=== PATIENT | female | born 1985 | race Caucasian/White ===

== ENCOUNTER → 2020-07-11 16:02 | Outpatient (CLI) | payer BC, SELFPAY ==
--- NOTE | ~2020-07-11 | US_ITS ---
EXAMINATION: US OB transvaginal DATE: 07/11/2020 16:23 INDICATION: Uncertain dates. TECHNIQUE: Real-time transvaginal pelvic ultrasound was performed. COMPARISON: None. FINDINGS: The uterus measures 7.8 x 4.7 x 6.1 cm. There is an intrauterine gestational sac with mean diameter o f 8 mm. A yolk sac is identified. No pole is visible. The right ovary measures 3.5 x 3.1 x 3.6 cm. The left ovary is not visualized. There is no free fluid in the pelvis. IMPRESSION: 1. Single intrauterine gestation. Reviewed, dictated and finalized at location A.
== END ==
PROVIDERS: Visit Provider Obstetrics & Gynecology Gynecology
DX: O26.21 Pregnancy care for patient with recurrent pregnancy loss, first trimester (principal); Z3A.00 Weeks of gestation of pregnancy not specified
CPT/HCPCS: 76817

== ENCOUNTER → 2020-07-28 11:01 | Outpatient (CLI) | payer BC, SELFPAY ==
--- NOTE | ~2020-07-28 | US_ITS ---
EXAMINATION: US OB <= 14 weeks fetus DATE: 07/28/2020 11:21 INDICATION: Uncertain gestational date TECHNIQUE: Real-time transabdominal and transvaginal obstetric ultrasound. FINDINGS: Ultrasound dated 07/11/2020 The uterus measures 12.6 x 5.7 x 6.8 cm. There is an intrauterine gestational sac, with pole id entified. The crown rump length measures 1.79 cm, which correlates with a estimated gestational age of 8 weeks 2 days. heart tones are identified measuring 154. The ovaries are within normal li mits. No significant ovarian or adnexal mass. No free fluid. IMPRESSION: 1. SL IUP with an EGA of 8 weeks, 2 days (EDC by current ultrasound of 03/07/2021). Reviewed, dictated and finalized at location A. IMPRESSION: 1. SL IUP with an EGA of 8 weeks, 2 days (EDC by current ultrasound of 03/07/19).
== END ==
PROVIDERS: Visit Provider Obstetrics & Gynecology Gynecology
DX: Z36.87 Encounter for antenatal screening for uncertain dates (principal); Z3A.08 8 weeks gestation of pregnancy
CPT/HCPCS: 76801

== ENCOUNTER 2020-10-29 09:10 | Observation (INO) | payer BC, SELFPAY ==
--- NOTE | 2020-10-29 09:10 | OBADM ---
This patient, Darlyn Ghosh, admitted to the OB room OB Post 115 for observation. Patient/family oriented to hospital policies and general routines including ID bracelet, bed and alarms, visiting hours, pain management, procedures, bathroom and other care routines, personal items, smoking policy, room service/diet, and visiting hours. Patient/Family are encouraged to report perceived risks to care and to ask questions if they do not understand what they are told or what they should do.
[2020-10-29 09:20] VITALS: BMI 33.3
[2020-10-29 09:44] VITALS: BP 111/66; PULSE 83
--- NOTE | 2020-10-31 13:04 | PM.OBTRLD ---
OB - Triage/Final Diagnosis Visit Information Reason for evaluation: other (s/p seizure; IUP 21 weeks) Comments/Additional reasons for admission: I have assessed the risk for this patient, Darlyn Ghosh, and determined that she would benefit from observation care.
== END 2020-10-29 10:20 | disposition home or self-care (01) ==
PROVIDERS: Admitting Provider Obstetrics & Gynecology Gynecology; Visit Provider Obstetrics & Gynecology Gynecology
DX: O26.892 Other specified pregnancy related conditions, second trimester (principal); R56.9 Unspecified convulsions; Z3A.21 21 weeks gestation of pregnancy
CPT/HCPCS: G0378; G0379

== ENCOUNTER 2020-12-15 07:04 | Outpatient (RCR) | payer BC, SELFPAY ==
[2020-12-15 08:40] LABS: Hematocrit 33.1 % (37.0-47.0)
[2020-12-15 08:53] LABS: Glucose 1 Hour PP 50gm Dose 159 mg/dL
[2020-12-15 09:36] LABS: HIV 1/2 Ab P24 Ag Result Negative (Negative); Vitamin D 25 Hydroxy 79.7 ng/mL
[2020-12-17] MEDS: RHO(D) IMMUNE GLOBULIN 300 MCG/2 ML SYRINGE IM (18:08)
== END 2021-03-15 23:59 | disposition home or self-care (01) ==
LOC: ANHLAB 07:04
PROVIDERS: PCP Internal Medicine; Visit Provider Obstetrics & Gynecology Gynecology
DX: Z11.4 Encounter for screening for human immunodeficiency virus [HIV] (principal); Z29.13 Encounter for prophylactic Rho(D) immune globulin; O36.0130 Maternal care for anti-D [Rh] antibodies, third trimester, not applicable or unspecified; Z3A.00 Weeks of gestation of pregnancy not specified
CPT/HCPCS: 36415; 82306; 82947; 85014; 85018; 85461; 86703; 90384; 96372; G0432; J2790

== ENCOUNTER 2020-12-23 07:10 | Outpatient (CLI) | payer BC, SELFPAY ==
[2020-12-23 07:52] LABS: Glucose Fasting Gestational 91 mg/dL (>/=95)
[2020-12-23 09:36] LABS: Glucose 1 Hour Gest 175 mg/dL (>/=180)
[2020-12-23 10:38] LABS: Glucose 2 Hour Gest 149 mg/dL (>/= 155)
[2020-12-23 11:35] LABS: Glucose 3 Hour Gest 80 mg/dL (>/=140)
== END 2020-12-23 07:11 | disposition home or self-care (01) ==
LOC: ANHLAB 07:13
PROVIDERS: PCP Internal Medicine; Visit Provider Obstetrics & Gynecology Gynecology
DX: O99.810 Abnormal glucose complicating pregnancy (principal); Z3A.29 29 weeks gestation of pregnancy
CPT/HCPCS: 36415; 82951; 82952

== ENCOUNTER 2021-03-01 11:09 | Outpatient (CLI) | payer BC, SELFPAY ==
[2021-03-01 11:29] LABS: Hematocrit 36.3 % (37.0-47.0); Hemoglobin 12.3 g/dL (12.0-15.0); Mean Corpuscular HGB Conc 33.9 g/dl (32-36); Mean Corpuscular Hemoglobin 30.1 pg (26-34); Mean Platelet Volume 8.9 fl (7.4-10.4); Platelet Count Result 278 k/mm3 (150-375); Red Blood Count 4.08 M/mm3 (4.2-5.4); Red Cell Distribution Width 14.9 % (11.5-14.5); White Blood Count 9.9 K/mm3 (4.5-10.0)
[2021-03-02 11:22] LABS: Rapid Plasma Reagin Non-Reactive (NonReactive)
== END 2021-03-01 11:10 | disposition home or self-care (01) ==
LOC: ANHOBOP 11:11
PROVIDERS: PCP Internal Medicine; Visit Provider Obstetrics & Gynecology Gynecology
DX: Z01.818 Encounter for other preprocedural examination (principal)
CPT/HCPCS: 36415; 85027; 86592; 86850; 86900; 86901

== ENCOUNTER 2021-03-02 05:33 | Inpatient (IN) | payer BC, SELFPAY ==
[2021-03-02] VITALS (53 sets, daily range): BP systolic 95–130; BP diastolic 51–76; PULSE 55–103; RESP 12–20; TEMP 36.2–37.2; O2SAT 93–100; BMI 35.4
--- NOTE | 2021-03-02 05:57 | LDADM ---
This patient, Darlyn Ghosh, was admitted to Labor/Delivery/Recovery 120 on 03/02/21 at 05:33. Plans for repeat section, pain management and were discussed with patient. Patient/family oriented to hospital policies and general routines including ID bracelet, bed and alarms, visiting hours, pain management, procedures, bathroom and other care routines, personal items, smoking policy, room service/diet and guest tray routines, infant security routines, and visiting hours. Patient/Family are encouraged to report perceived risks to care and to ask questions if they do not understand what they are told or what they should do. See OBIX for further documentation.
[2021-03-02] MEDS: LACTATED RINGERS 1,000 ML 125 ML IV CONT ×2 (06:00→06:43)
--- NOTE | 2021-03-02 06:51 | WPDANESEPPF ---
Anes - Initial Pre Proc Eval Procedure: Operation Date: 03/02/21 07:30 Proposed Procedures p Repeat Section With Bilateral Tubal Ligation - Cierra Copeland MD Date/Time: 03/02/21 06:51 Surgeon: Cierra Copeland MD Pre Op Diagnosis: Repeat ,Vol Sterilization Patient Data Age: 35 Gender: F Height: 1.65 m Weight: 96.5 kg Last Vital Signs Pulse 95 03/02/21 06:45 BP 119/68 03/02/21 06:45 Allergies Allergy/AdvReac Type Severity Reaction Status Date / Time Penicillins Allergy Unknown Itching Verified 12/16/17 14:29 Home Medications Medication Instructions Recorded Confirmed Type PNV cmb#95-ferrous fumarate-FA 1 tablet PO DAILY 02/16/21 02/16/21 History [] cholecalciferol (vitamin D3) 75 mcg PO DAILY 02/16/21 02/16/21 History [Vitamin D3] ferrous sulfate [Iron (ferrous 325 mg PO DAILY 02/16/21 02/16/21 History sulfate)] levetiracetam [Keppra] 750 mg PO BID 02/16/21 02/16/21 History metformin 500 mg PO BID 02/16/21 02/16/21 History Patient hx anesthesia problems: none Family hx anesthesia problems: none Results Review: All pre-operative results and documents have been reviewed as part of the pre-operative evaluation. [facility] Past Medical History Medical History (Updated 03/02/21 @ 06:52 by Griffin Javed MD) Obesity Seizures Surgical History Surgical History (Updated 03/02/21 @ 06:52 by Griffin Javed MD) History of section Family History Family History (Updated 02/16/21 @ 15:39 by Stephie Lee RN) Mother Diabetes mellitus ASD, spontaneous closure Father Pancreatic cancer Social History Social History Smoking status: Never smoker Second hand tobacco smoke exposure: No Substance use: never Spiritual care concerns: No Anes - Eval Final PreProcedure Day of Procedure 03/02/21 06:51 Patient weight: obese Heart: regular rate and rhythm Lungs: clear to auscultation Airway: Mallampati scale class II Neurological: alert and oriented Last oral intake: >/= 8 hours ASA classification: III Emergent: no Anesthetic plan: proceed Anesthesia type and monitoring: regional spinal and standard monitoring Results Review: All pre-operative results and documents have been reviewed as part of the pre-operative evaluation. Informed Consent: The patient's anesthetic plan and its attendant risks and benefits were discussed with the patient/family/POA. Questions were solicited and answers provided to the satisfaction of the patient/family/POA.
--- NOTE | 2021-03-02 07:03 | P.HP_ITS ---
H&P: HPI History of Present Illness Date/Time: 03/02/21 07:03 Chief Complaint: repeat csection and BTL Narrative: 35 yo A1 here at 39 wks for repeat LTCS and BTL. Patient has completed her childbearing and requests permanent sterilization. Risks of failure with ectopic if tubal fails discussed. Patient is aware this is a permanent and irreverisible procedure rendering her sterile. conceived with Femara. uncomplicated. labs: B-; RPR-; HIV -HbSAg -; Rubella Immune; GBS+. [facility] Past Medical History Medical History (Updated 03/02/21 @ 07:08 by Cierra Copeland MD) Obesity PCOS (polycystic ovarian syndrome) Seizures Surgical History Surgical History (Updated 03/02/21 @ 07:09 by Cierra Copeland MD) History of section Family History Family History (Updated 02/16/21 @ 15:39 by Stephie Lee RN) Mother Diabetes mellitus ASD, spontaneous closure Father Pancreatic cancer Social History Social History Smoking status: Never smoker Second hand tobacco smoke exposure: No Substance use: never Spiritual care concerns: No Meds Home Medications and Allergies Home Medications Medication Instructions Recorded Confirmed Type PNV cmb#95-ferrous fumarate-FA 1 tablet PO DAILY 02/16/21 02/16/21 History [] cholecalciferol (vitamin D3) 75 mcg PO DAILY 02/16/21 02/16/21 History [Vitamin D3] ferrous sulfate [Iron (ferrous 325 mg PO DAILY 02/16/21 02/16/21 History sulfate)] levetiracetam [Keppra] 750 mg PO BID 02/16/21 02/16/21 History metformin 500 mg PO BID 02/16/21 02/16/21 History Allergies Allergy/AdvReac Type Severity Reaction Status Date / Time Penicillins Allergy Unknown Itching Verified 12/16/17 14:29 Vital Signs Vital Signs - 24 hr 03/02/21 06:15 03/02/21 06:30 03/02/21 06:41 Temperature 99 F Pulse Rate 87 86 91 Blood Pressure 125/73 116/76 121/75 03/02/21 06:45 03/02/21 07:00 Temperature Pulse Rate 95 92 Blood Pressure 119/68 116/71 Exam Const: General: healthy appearing and alert Orientation/consciousness: patient oriented x3 GI: Inspection: other (fundal height 38 cm) GI Palp: Yes Soft to palpation and No Tenderness to palpation present (GI) : External Female Exam: normal external appearance Neuro: General: patient oriented x3 Assessment and Plan Assessment and plan (1) 39 weeks gestation of : Code(s): Z3A.39 - 39 weeks gestation of Status: Acute (2) History of section: Code(s): Z98.891 - History of uterine scar from previous surgery Status: Acute Assessment and Plan: plan to proceed with repeat csection (3) Encounter for sterilization: Code(s): Z30.2 - Encounter for sterilization Status: Acute Assessment and Plan: plan to proceed with tubal ligation
--- NOTE | 2021-03-02 07:03 | WPDHPUPDATE1 ---
History and Physical Update Update Date/Time: 03/02/21 07:03 History and Physical has been reviewed, including an updated exam of the patient. There are NO changes in the patient's condition. Risks, benefits, and alternatives have been discussed and questions answered. Patient agrees to proceed with procedure.
[2021-03-02] MEDS: ceFAZolin 2 GM/D5W 50 ML 2 GM/50 ML BAG IVPB (07:24)
--- NOTE | 2021-03-02 08:22 | P.OP_ITS ---
Procedure Note - Detailed Date of Procedure 03/02/21 Pre-op Diagnosis Repeat ,Vol Sterilization Post-op Diagnosis same Procedure Performed Repeat low-transverse section with bilateral tubal ligation Surgeon Cierra Copeland MD Anesthesia spinal Findings Normal-appearing tubes, ovaries, and uterus. Female 7lb 1oz with 8 and 9 Apgars. Description of Procedure The patient was taken to the operating room and placed under anesthesia in the dorsal supine position with a leftward tilt. Once anesthesia was deemed adequate, she was prepped and draped in the usual sterile fashion. Pfannenstiel skin incision was made with a scalpel and carried down to the midline where the fascia was nicked. The fascial incision was extended laterally using Leo scissors. Bleeding vessels in the subcutaneous tissue are cauterized. The [facility] used to tent the fascia which was then dissected off using sharp and blunt dissection. The peritoneum is entered with a Peon and extended with blunt traction. The bladder blade is placed and the vesicouterine peritoneum grasped with a Peon. The bladder flap was created using Metzenbaum laterally and blunt dissection. Bladder blade is replaced. The lower uterine segment was incised in a transverse fashion with the scalpel. Membranes are ruptured with clear fluid noted. The incision is extended laterally using blunt traction. The infant's head was brought up into the incision and delivered while the medical assistant instructor applied fundal pressure. The infant was fully delivered and the cord clamped and cut. The was handed to the waiting nursery nurse. The placenta is removed using manual traction after cord blood is taken. The uterus is exteriorized, cleared of all clots and debris, and closed using 0 Monocryl in a running locked fashion. The same suture was used to imbricate. One additional [id number] suture was required in the left corner. Good hemostasis is noted. The right tube was grasped with a Eloina and the distal 2/3 crossclamped with a Z clamp. The tube was excised and the pedicle tied using Orlando stitch of 0 Vicryl. The identical procedure was performed on the left side. Bovie cautery was placed on the peritoneum near the to that was having some minimal bleeding. Both tubes and the uterus are noted to be hemostatic. The cul-de-sac is irrigated. The uterus was returned to the abdomen. The tubes and uterus were again inspected and noted to be hemostatic. The fascia was closed using 0 Vicryl in a running fashion. Subcutaneous tissues were irrigated and made hemostatic using Bovie cautery. Skin incision was closed using 4-0 Vicryl in a subcuticular fashion. Dermaflex was placed over the incision. Sponge, needle, and instrument counts are correct per the OR staff. Ancef was given prior to skin incision. Estimated Blood Loss 500 Drains Yes (Harris catheter) Packing No Pathology yes (Bilateral tubes) Complications No immediate complications Condition stable Disposition floor
--- NOTE | 2021-03-02 08:28 | PM.OBDSVD ---
DS: Admitting Diagnosis Discharge Date 03/04/21 Admitting Diagnosis Intrauterine at 39 weeks for repeat section and tubal ligation DS: Discharge Diagnosis Discharge Diagnosis (1) History of section: Code(s): Z98.891 - History of uterine scar from previous surgery Status: Acute (2) Encounter for sterilization: Code(s): Z30.2 - Encounter for sterilization Status: Acute (3) 39 weeks gestation of : Code(s): Z3A.39 - 39 weeks gestation of Status: Acute (4) delivery delivered: Code(s): O82 - Encounter for delivery without indication Status: Acute OB - DS: Summary OB Procedures : Ultrasound OB Procedures Intrapartum: low cervical, transverse and Tubal ligation OB Procedures: : None Peripartum Data Procedures: Procedures Operation Date: 03/02/21 07:30 <No data on this case meets the specified criteria> complications: none Status at Discharge Functional status at discharge: independent ambulation Overall status at discharge: patient is progressing back to baseline Time Spent with Patient Time attestation: Total time spent providing and/or coordinating discharge services: DS: Data Data Completed and Pending Pending studies at discharge: Pending at discharge 03/02/21 08:16 Surgical [PTH] Routine Discharge Plan Discharge Attending physician on discharge: Cierra Copeland Discharging Clinician: Justin Duran Anticipated Discharge Date/Time: 03/04/21 08:29 Patient Disposition: Home, Self-Care Activity: may shower, may drive after 2 weeks and pelvic rest Diet: regular Discharge Instructions: Education: Mom and Baby Guide Given to: Mother Follow-Up: Call your delivering provider's office for an appointment to be seen in: 1 Week Mom and baby should come to the [facility] for the follow-up appointment. Appointment Date/Time: March 06, 2021 at 9:00 am What to expect at your follow-up visit: Blood Pressure Check Call [phone] if you are unable to keep your appointment time. BREAST CARE: * Wear a snug supportive bra. * For engorgement discomfort: Bottle Feeding: * May apply ice packs ABDOMINAL INCISION: (if applicable) * Allow incision to air dry * Do NOT use lotions for powders on your incision * When showering, allow soap and water to run over the incision, but do not wash incision PERINEAL CARE: * Until bleeding stops, use your senia bottle after urinating * Change your pad frequently throughout the day * No tub baths until seen by your physician - You may shower ACTIVITY: * Rest as much as possible. * Do not exercise or lift anything heavier than your baby (such as laundry or other children.) * Avoid stairs or driving as much as possible. * Do not put anything into the vagina. No douching, tampons, or sexual activity until seen by physician. NOTIFY PHYSICIAN IF YOU HAVE ANY QUESTIONS OR IF ANY OF THE FOLLOWING SYMPTOMS OCCUR: * If your incision becomes red, swollen, or more painful than what you have experienced in the hospital. * If your vaginal bleeding becomes foul smelling. * If your vaginal bleeding becomes more heavy than a period or if your bleeding changes from pink to bright red. However, you may pass an occasional walnut-sized clot once or twice for the first week . * If you experience a sharp, shooting pain in you calves. * If you discover a hard, reddened area on your breast or if you experience flu-like symptoms. * If you have a fever of 100.4 or greater DIET: * Eat regular, well-balanced meals. * Drink plenty of fluids daily. If , drink to thirst. Patient Instructions: Antibiotic Form Stand Alone Forms: General Discharge Information Follow-up/Referrals: Cierra Copeland MD [Physician] - 1 Week (and 6 wk)
[2021-03-02] MEDS: OXYTOCIN 30 UNITS/NS 500 ML 30 UNITS/500 ML BAG 125 UNITS IV CONT (09:18)
[2021-03-02] MEDS: diphenhydrAMINE HCl INJ 50 MG/ML VIAL 25 MG IV PUSH (09:46)
--- NOTE | 2021-03-02 10:38 | PC.NURSE ---
Patient transferred to post room #282 via stretcher. Support person present. Oriented to unit, room, information board, rooming in, admission packet and security measures. Patient verbalizes understanding.
--- NOTE | 2021-03-02 12:10 | PC.NURSE ---
Mother called out for assist with feeding. Mother reports infant latched for first feeding after several attempts and was able to maintain latch without difficulties or discomfort. Mother reported attempting with first child that did not latch, she pumped for several months. Infant is able to freely thrust tongue past gum ridge and flange both lips. Reviewed feeding cues, frequencies, duration of feedings, feeding elimination flow sheet, and signs of adequate intake. Demonstrated stimulation techniques to wake for feeding. Assisted with infant to breast. Reviewed positioning/alignment in football, holding breast in ?C? hold and guided asymmetrical latch on. Reviewed rational for each. able to latch correctly within a few attempts. Infant nursed eagerly with steady draws and occasional swallowing noted, some pausing noted. Reviewed signs of a correct latch, effective nursing and suck swallow ratio. Suggested mother stimulate while feeding to increase stimulation for milk supply, for increased intake and to assist with maintaining deep latch. would slip to shallow latch causing tenderness and frequently releasing latch. Demonstrated how to adjust latch more deeply while feeding as needed. Mother reports she can feel the difference in latch with no tenderness. Nipple care reviewed of lanolin after feedings, warm compresses as needed. Instructed mother to call out for RN assistance if she is unable to latch for feeding or she has discomfort with nursing. Instructed feeding should be initiated three hours from start of last feeding or if feeding cues are noted before. Mother voiced understanding of information shared.
[2021-03-02] MEDS: DOCUSATE SODIUM 100 MG CAPSULE PO (13:19)
[2021-03-02] MEDS: LORATADINE 10 MG TABLET PO (13:19)
[2021-03-02] MEDS: DEXTROSE 5%/0.45% SOD CHL 1,000 ML 125 ML IV CONT (13:21)
--- NOTE | 2021-03-02 15:10 | PC.NURSE ---
Mother called out for observation of latch. Reviewed positioning/alignment in cross cradle, holding breast in ?U? hold and guided asymmetrical latch on. Reviewed rational for each. Mother independently was able to latch infant within a few attempts. nursed eagerly with steady draws and occasional swallowing noted, some pausing noted. Reviewed signs of a correct latch, effective nursing and suck swallow ratio. Suggested mother stimulate while feeding to increase stimulation for milk supply, for increased intake and to assist with maintaining deep latch. was able to maintain latch without discomfort to mother. Infant would slip to shallow latch causing tenderness. Constant stimulation needed to keep awake and nursing. Nipple care reviewed of lanolin after feedings, warm compresses as needed. Instructed mother to call out for RN assistance if she is unable to latch for feeding or she has discomfort with nursing. Instructed feeding should be initiated three hours from start of last feeding or if feeding cues are noted before. Mother voiced understanding of information shared.
[2021-03-02] MEDS: KETOROLAC 30 MG/ML VIAL (*BKC) IV PUSH (15:14)
[2021-03-02] MEDS: levETIRAcetam Tablet 250 MG, levETIRAcetam Tablet 500 MG 750 MG PO (18:53)
[2021-03-02] MEDS: metFORMIN HCL XR 500 MG TAB.SR.24H PO (18:53)
[2021-03-02] MEDS: HYDROcodone/acetaminophen (*CRX) 5-325 MG TABLET 1 TAB PO (22:15)
[2021-03-03 03:47] VITALS: BP 97/60; PULSE 84; RESP 16; TEMP 36.6; O2SAT 98
[2021-03-03 05:19] LABS: Basophils Absolute Auto 0.1 K/mm3 (0.0-0.1); Basophils Percent Auto 0.5 % (0.2-1.2); Eosinophils Absolute Auto 0.1 K/mm3 (0-0.3); Eosinophils Percent Auto 1.2 % (0-4.4); Hematocrit 29.5 % (37.0-47.0); Hemoglobin 9.7 g/dL (12.0-15.0); Immature Granulocyte Absolute 0.05 K/mm3 (0.00-0.031); Immature Granulocyte Percent A 0.5 % (0-0.5); Lymphocytes Absolute Auto 1.66 K/mm3 (0.9-3.2); Mean Corpuscular HGB Conc 32.9 g/dl (32-36); Mean Corpuscular Hemoglobin 29.3 pg (26-34); Mean Corpuscular Volume 89.1 fl (80-100); Mean Platelet Volume 9.5 fl (7.4-10.4); Monocytes Absolute Auto 0.6 K/mm3 (0.1-0.6); Monocytes Percent Auto 6.1 % (2.6-8.5); Neutrophils Absolute Auto 7.9 K/mm3 (1.3-6.7); Neutrophils Percent Auto 75.7 % (45.5-73.1); Platelet Count Result 261 k/mm3 (150-375); Red Blood Count 3.31 M/mm3 (4.2-5.4); Red Cell Distribution Width 14.8 % (11.5-14.5); White Blood Count 10.4 K/mm3 (4.5-10.0)
--- NOTE | 2021-03-03 07:29 | P.PNOB_ITS ---
OB - PN: Subj Subjective Date/time seen: 03/03/21 07:29 Patient comments: no complaints and pain well controlled baby status: doing well OB - PN: Obj Data Labs CBC & Chem 7: 03/03/21 03:49 Labs: Laboratory Results - last 24 hr 03/03/21 03/03/21 03:49 03:49 WBC 10.4 H RBC 3.31 L Hgb 9.7 L Hct 29.5 L MCV 89.1 MCH 29.3 MCHC 32.9 RDW 14.8 H Plt Count 261 MPV 9.5 Immature Gran % (Auto) 0.5 Neut % (Auto) 75.7 H Lymph % (Auto) 16.0 L [place] % (Auto) 6.1 Eos % (Auto) 1.2 Baso % (Auto) 0.5 Lymph # (Auto) 1.66 [place] # (Auto) 0.6 Eos # (Auto) 0.1 Baso # (Auto) 0.1 Abs Immat Gran (auto) 0.05 H Absolute Neuts (auto) 7.9 H Absolute Nucleated RBC 0.0 Nucleated RBC % 0.0 Blood Type B Negative Antibody Screen Negative OB - PN A/P Plan day: 1 Plan: routine care Time Spent With Patient Time: Total time spent is greater than 50% in coordination of care (as documented) at patient's floor/unit and/or counseling patient: Exam Narrative: inc c/d/i : Bimanual exam- vagina & uterus: other (Uterus firm, nt @U)
[2021-03-03 07:55] VITALS: BP 103/68; PULSE 84; RESP 18; TEMP 36.8; O2SAT 98
[2021-03-03] MEDS: HYDROcodone/acetaminophen (*CRX) 5-325 MG TABLET 1 TAB PO ×4 (08:18→23:58)
[2021-03-03] MEDS: POLYSACCHARIDE IRON COMPLEX 150 MG CAPSULE PO ×2 (08:19→15:35)
[2021-03-03] MEDS: IBUPROFEN 600 MG TABLET PO ×3 (08:19→23:58)
[2021-03-03] MEDS: MULTIVIT/MIN/PREN/FOL AC/IRON TABLET 1 TAB PO (08:19)
[2021-03-03] MEDS: DOCUSATE SODIUM 100 MG CAPSULE PO ×2 (08:19→15:35)
[2021-03-03] MEDS: levETIRAcetam Tablet 250 MG, levETIRAcetam Tablet 500 MG 750 MG PO ×2 (08:20→19:52)
[2021-03-03] MEDS: metFORMIN HCL XR 500 MG TAB.SR.24H PO ×2 (08:20→19:52)
--- NOTE | 2021-03-03 08:30 | PC.NURSE ---
Mother reports she wishes to bottle feed.
[2021-03-03] MEDS: RHO(D) IMMUNE GLOBULIN 300 MCG/2 ML SYRINGE IM (10:24)
--- NOTE | 2021-03-03 12:46 | WPDANLDPN2 ---
Anes-Prog Note L&D Date/Time: 03/03/21 12:46 Comfortable throughout: section Neuraxial method: spinal Epidural/Spinal procedure site: clean & non-tender Neuro status: Neuro function grossly intact. Cardiovascular status: normal Respiratory status: normal Airway patency: baseline Mental status: baseline Post-Op hydration status: normal Vital Signs: Last Vital Signs Temp 98.2 F 03/03/21 07:55 Pulse 84 03/03/21 07:55 Resp 18 03/03/21 07:55 BP 103/68 03/03/21 07:55 Pulse Ox 98 03/03/21 07:55 Pain score (VAS): 2 I/O: Intake & Output 03/02/21 03/03/21 03/03/21 23:59 07:59 15:59 Intake Total 400 Output Total 3550 2450 Balance -3150 -2450 Post-procedural complaints: pruritis severe, treatment refractory Patient feedback: Patient satisfied with anesthetic care.
--- NOTE | 2021-03-03 12:47 | WPDANLDNPN2 ---
Anes-Prog Note L&D-Neuraxial Date/Time: 03/03/21 12:47 Neuraxial medications: intrathecal PF morphine Opiod-related complaints: pruritis severe, treatment refractory Patient feedback: Patient satisfied with post-operative pain management.
--- NOTE | 2021-03-03 16:58 | PC.NURSE ---
Patient viewed the discharge video Mother & Baby Care, The First Two Weeks . Patient was given the opportunity and encouraged to ask questions. Patient verbalized understanding of information shared and has been given the mother/baby guide for home reference.
[2021-03-03 19:45] VITALS: BP 112/61; PULSE 85; RESP 16; TEMP 37; O2SAT 98
[2021-03-04] MEDS: HYDROcodone/acetaminophen (*CRX) 5-325 MG TABLET 1 TAB PO ×3 (05:16→14:20)
--- NOTE | 2021-03-04 07:00 | PC.NURSE ---
PT introductions made and plan of care discussed per post op c section, pain management, bottle feeding, daily care activities. PT and fob both received such instructions through out the shift via one to one discussion, mom baby care guide and demonstration. PT and fob show no barriers to learning at this time and verbalized understanding of such care.
[2021-03-04 07:50] VITALS: BP 108/71; PULSE 88; RESP 18; TEMP 36.8; O2SAT 98
[2021-03-04] MEDS: POLYSACCHARIDE IRON COMPLEX 150 MG CAPSULE PO (09:41)
[2021-03-04] MEDS: DOCUSATE SODIUM 100 MG CAPSULE PO (09:41)
[2021-03-04] MEDS: SIMETHICONE 80 MG TAB.CHEW PO (09:41)
[2021-03-04] MEDS: IBUPROFEN 600 MG TABLET PO (09:43)
[2021-03-04] MEDS: levETIRAcetam Tablet 250 MG, levETIRAcetam Tablet 500 MG 750 MG PO (09:44)
[2021-03-04 09:45] VITALS: PULSE 88; RESP 18; O2SAT 98
[2021-03-04] MEDS: metFORMIN HCL XR 500 MG TAB.SR.24H PO (09:45)
--- NOTE | 2021-03-04 12:28 | PM.OBPNVD ---
OB - PN: Subj Subjective Date/time seen: 03/04/21 12:28 doing well desires home today OB - PN: Obj Data Labs CBC & Chem 7: 03/03/21 03:49 OB - PN A/P Assessment and Plan (1) delivery delivered: Code(s): O82 - Encounter for delivery without indication Status: Acute Assessment and Plan: continue with postop care. (2) Post-op pain: Code(s): G89.18 - Other acute postprocedural pain Status: Acute Time Spent With Patient Time: Total time spent is greater than 50% in coordination of care (as documented) at patient's floor/unit and/or counseling patient: Exam Narrative: c/d/i ff below umbilicus
--- NOTE | 2021-03-04 14:00 | PC.NURSE ---
Patient viewed the discharge video Mother & Baby Care, The First Two Weeks . Patient was given the opportunity and encouraged to ask questions. Patient verbalized understanding of information shared and has been given the mother/baby guide for home reference. PT received discharge instructions per protocol and verbalized understanding of such care.
--- NOTE | 2021-03-04 14:53 | PC.NURSE ---
Addendum entered by Tristin Spencer RN 03/04/21 14:54: actual time of discharge 1428 Original Note: PT discharged to home ambulatory accompanied by spouse and infant and taken to waiting car. Follow up appts confirmed
[2021-03-06 08:55] VITALS: BP 121/73; PULSE 79; RESP 16; TEMP 36.6; O2SAT 99
== END 2021-03-04 14:28 | disposition home or self-care (01) | DRG 785 ==
LOC: ANHLDR 08:30 → ANHOB2 03-03 11:11 → ANHLDR 03-05 09:52 → ANHOB2 03-05 09:52
PROVIDERS: Admitting Provider Obstetrics & Gynecology Gynecology; PCP Internal Medicine; Visit Provider Obstetrics & Gynecology
PROC: 10D00Z1 Extraction of Products of Conception, Low, Open Approach (ICD-10-PCS; CPT 59514; principal; 2021-03-02 07:30)
DX: O34.219 Maternal care for unspecified type scar from previous cesarean delivery (principal); Z30.2 Encounter for sterilization; O99.284 Endocrine, nutritional and metabolic diseases complicating childbirth; E28.2 Polycystic ovarian syndrome; O99.824 Streptococcus B carrier state complicating childbirth; O69.81X0 Labor and delivery complicated by cord around neck, without compression, not applicable or unspecified; Z3A.39 39 weeks gestation of pregnancy; Z37.0 Single live birth
CPT/HCPCS: 36415; 85025; 85461; 88302; 90384; A9270; J0131; J0690; J1200; J1885; J2274; J2370; J2405; J2590; J2790; J7120